=== PATIENT | male | born 1995 | race Caucasian/White ===

== ENCOUNTER 2023-12-19 07:05 | Emergency (ER) | payer SELFPAY ==
[2023-12-19] VITALS (18 sets, daily range): BP systolic 127–169; BP diastolic 81–132
[~2023-12-19] VITALS: Ht 182.9 cm; Wt 100.0 kg
[2023-12-19] MEDS ORDERED: ONDANSETRON HCl 4 MG/2 ML SDV IV ONE (07:10)
[2023-12-19] MEDS ORDERED: SODIUM CHLORIDE 0.9% 1,000 ML IV ONE ×2 (07:10→07:15)
[2023-12-19 07:37] LABS: BASO% 0.2 % (0-3); EOS% 0.4 % (0-8); HEMATOCRIT 49.3 % (39.0-50.0); IMMATURE GRANULOCYTES 0.3 % (0.0-5.0); MEAN CELL VOLUME 86.8 fL CALC (80.0-100.0); MEAN CORPUSCULAR HGB 29.9 pG CALC (26.0-32.0); MEAN CORPUSCULAR HGB CONC 34.5 g/dL CAL (32.0-36.0); MONO% 7.2 % (2-13); NEUT# 7.98 thou/uL (1.82-7.42); NEUT% 70.9 % (42-76); RED BLOOD COUNT 5.68 mill/uL (4.70-6.10); RED CELL DISTRI WIDTH 11.5 % (11.5-15.5)
[2023-12-19 07:55] LABS: URINE BILIRUBIN - DIPSTICK Negative (NEGATIVE); URINE BLOOD DIPSTICK Small (NEGATIVE); URINE COLOR Yellow; URINE GLUCOSE - DIPSTICK Negative (NEGATIVE); URINE KETONE Negative (NEGATIVE); URINE LEUK ESTERASE Negative (NEGATIVE); URINE NITRITE - DIPSTICK Negative (Negative); URINE PROTEIN - DIPSTICK Negative (NEG-TRACE); URINE UROBILINOGEN - DIPSTICK 0.2 E.U./dL (0.2)
[2023-12-19] MEDS ORDERED: Pantoprazole Sodium 40 MG VIAL (Protonix) IV ONE (07:55)
[2023-12-19] MEDS ORDERED: PROMETHAZINE HCL 25 MG/ML AMP IV ONE (07:55)
[2023-12-19 07:56] LABS: ALBUMIN 5.5 g/dL (3.2-5.0); BILIRUBIN, TOTAL 2.1 mg/dL (0.2-1.3); CREATININE 1.3 mg/dL (0.7-1.3); POTASSIUM 3.8 mmol/l (3.5-5.1); TOTAL PROTEIN 9.3 g/dL (6.3-8.2)
[2023-12-19 08:07] LABS: URINE EPITHELIAL CELLS RARE EPI/hpf (0-FEW); URINE RBC 0-2 RBC/hpf (0-5)
[2023-12-19] MEDS ORDERED: ALUM & MAG HYDROX-SIMETHICONE 30 ML PO ONE (09:05)
[2023-12-19] MEDS ORDERED: LIDOCAINE VISCOUS 2% 15 ML UDC PO ONE (09:05)
[2023-12-19] MEDS ORDERED: ZOFRAN4 MG/TAB PO (09:47)
[2023-12-19] MEDS ORDERED: OMEPRAZOLE DR40 MG PO (09:47)
== END 2023-12-19 10:33 | disposition home or self-care (01) | DRG 392 ==
LOC: ED 07:05
PROVIDERS: Family Medicine
DX: R10.13 Epigastric pain (principal); I10 Essential (primary) hypertension; Z20.822 Contact with and (suspected) exposure to COVID-19
CPT/HCPCS: J2470; Q9967